=== PATIENT | female | born 1955 | race Caucasian/White ===

== ENCOUNTER → 2016-07-15 | Outpatient (CLI) | payer OTHER ==
[2015-07-02 15:00] VITALS: BP 123/81
[~2016-07-15] MED LIST: ACET500T68 PO; CETI10TA22 PO; CHOL100013 PO; CONTRAST GIVEN MC PRN; CYCL10TA2 PO; FERR-26 PO; FLUD0.1T PO; HYDR10TA14 PO; MAGN400T22 PO; METO25TA4 PO; MULT-208 PO; OMEP40CA5 PO; OXYC-323 PO; PANT40TA5 PO; POTA20TA4 PO; TRAM50TA PO; WARF2TAB7 PO
[2016-07-15] MEDS: IOHEXOL 300 MG/ML 100ML VIAL. IV ONE (09:59)
--- NOTE | 2016-07-15 12:15 | KCIC ---
Examination: CT abdomen without and with IV contrast HISTORY History of adrenal insufficiency followup. COMPARISON 10/02/2015. TECHNIQUE Axial CT images of the abdomen was performed without and with IV contrast. Coronal sagittal reformats were performed. Exposure: One or more of the following dose reduction technique were utilized for this examination: 1. Automated exposure control. 2.Adjustment of MA and /or KV according to patient size. 3. Use of iterative reconstruction technique. Findings : The visualized bibasilar lungs grossly appears unremarkable. No evidence of free air identified in the visualized abdomen. The evaluation of the solid organs is limited lack of IV contrast. The visualized liver, spleen, pancreas grossly appears unremarkable. No evidence of intrarenal collecting system calculi identified. No evidence of hydronephrosis. The prominence of the bilateral adrenal glands seen on the prior exam has completely resolved. The visualized adrenal glands grossly appears unremarkable. Mild aortic atherosclerosis. Moderate intervertebral disc height loss identified at L2-L3 vertebral level. Small hiatal hernia. IMPRESSION The previously visualized prominence of the bilateral adrenal glands has completely resolved. Electronically signed by: Ildefonso Turner (Jul 15, 2016 12:13:28)
== END | disposition home or self-care (01) ==
LOC: KCIC CT 09:26
PROVIDERS: ATTEND Internal Medicine Endocrinology, Diabetes & Metabolism
DX: E27.40 Unspecified adrenocortical insufficiency (principal); E27.49 Other adrenocortical insufficiency; K44.9 Diaphragmatic hernia without obstruction or gangrene
CPT/HCPCS: 74170; Q9967

== ENCOUNTER → 2021-01-25 | Outpatient (CLI) | payer BC ==
[2015-07-02 15:00] VITALS: BP 123/81
[~2021-01-25] MED LIST changes: -CETI10TA22 PO; +CETI10TA74 PO; -CONTRAST GIVEN MC PRN; -FERR-26 PO; +FERR325T14 PO; +HYDR-3107 PO; -HYDR10TA14 PO; -OMEP40CA5 PO; +OMEP40CA7 PO; -OXYC-323 PO; +OXYC1TAB15 PO; -PANT40TA5 PO; +PANT40TA77 PO; +POTA-121 PO; -POTA20TA4 PO; -WARF2TAB7 PO; +WARF2TAB96 PO
--- NOTE | 2021-01-25 16:34 | KCIC ---
BILATERAL DIGITAL SCREENING MAMMOGRAMS: Reason for examination: Routine screening. Comparison is made to previous study dated January 20, 2014. Interpretation was made with the benefit of CAD. Findings: Breast density: Category B. There are scattered areas of fibroglandular density. There are no suspicious masses, malignant appearing calcifications or architectural distortions. Ther e is a small area of more focally dense fibroglandular tissue in the 8:00 position of the left breast at anterior depth which is stable. IMPRESSION: No evidence of malignancy. Recommend routine screening. BI-RADS Category 1: Negative. This patient's information has been entered into a reminder system for the patient to be notified wit h the results of her examination and a target date for the next mammogram. Electronically signed by: Vianca Grey MD (01/25/2021 4:31 PM) [id number]
== END ==
LOC: KCIC MAMMO 13:58
PROVIDERS: ATTEND Family Medicine
DX: Z12.31 Encounter for screening mammogram for malignant neoplasm of breast (principal)
CPT/HCPCS: 77067

== ENCOUNTER → 2021-05-11 | Outpatient (CLI) | payer BC ==
[2015-07-02 15:00] VITALS: BP 123/81
[~2021-05-11] MED LIST changes: +CYCL10TA19 PO; -CYCL10TA2 PO
== END ==
LOC: PF 08:01
PROVIDERS: ATTEND Internal Medicine Pulmonary Disease
DX: J45.909 Unspecified asthma, uncomplicated (principal)
CPT/HCPCS: 94010; 94729